=== PATIENT | male | born 1975 | race African-American/Black ===

== ENCOUNTER 2017-03-26 23:55 | Emergency (ER) | payer MEDICARE, MEDICAID ==
[~2017-03-26] VITALS: Ht 170.2 cm; Wt 71.0 kg
[~2017-03-26 23:55] MED LIST: AMLO10TA4 PO; APIX2.5T PO; CINA30 PO; CLON0.1T PO; COR12 PO; SEVE800T PO
[2017-03-27] MEDS ORDERED: ONDANSETRON HCL 4MG/2ML VIAL IV STA (03:19)
[2017-03-27] MEDS ORDERED: MORPHINE SULFATE 4 MG/ML CPJ (NOT FOR IM USE) IV STA (03:19)
[2017-03-27 03:37] LABS: BASOPHILS % 0.5 % (0.0-2.0); EOSINOPHILS % 5.3 % (0.0-5.0); HEMATOCRIT. 27.8 % (42.0-52.0); LYMPHOCYTES % 25.3 % (20.0-50.0); MEAN CORPUSCULAR VOLUME 95.5 fL (80.0-94.0); MEAN PLATELET VOLUME 8.7 fl (7.4-10.4); MONOCYTES % 10.7 % (2.0-8.0); NEUTROPHILS % 58.2 % (40.0-76.0); PLATELET 164 x1000/uL (130-400); RED BLOOD CELL COUNT 2.91 mill/uL (4.7-6.1); RED CELL DISTRIBUTION WIDTH 18.5 % (11.6-14.6)
[2017-03-27 03:50] LABS: INR 1.2; PROTHROMBIN TIME 12.1 sec
[2017-03-27 03:52] LABS: CARBON DIOXIDE 25 mEq/L (21-32); CHLORIDE 103 mEq/L (98-107); TROPONIN I 0.03 ng/mL (0.00-0.04)
[2017-03-27] MEDS ORDERED: DIPHENHYDRAMINE 50MG/ML VIAL IV ONE (05:00)
[2017-03-27 06:15] VITALS: BP 110/77
== END 2017-03-27 06:40 | disposition home or self-care (01) ==
LOC: ER 23:55
DX: R07.9 Chest pain, unspecified (principal); I50.9 Heart failure, unspecified; I11.0 Hypertensive heart disease with heart failure; F17.200 Nicotine dependence, unspecified, uncomplicated; Z86.718 Personal history of other venous thrombosis and embolism; Z99.2 Dependence on renal dialysis; Z79.01 Long term (current) use of anticoagulants; Z88.0 Allergy status to penicillin
CPT/HCPCS: 36415; 71010; 80053; 84484; 85025; 85610; 93005; 96374; 96375; 99285; J1200; J2270; J2405

== ENCOUNTER 2017-03-27 15:47 | Inpatient (IN) | payer MEDICARE, MEDICAID ==
[~2017-03-27] VITALS: Ht 226.1 cm; Wt 70.3 kg
[2017-03-27 17:29] LABS: BASOPHILS % 2.3 % (0.0-2.0); EOSINOPHILS % 7.4 % (0.0-5.0); HEMATOCRIT. 29.1 % (42.0-52.0); HEMOGLOBIN. 9.6 g/dL (14.0-18.0); LYMPHOCYTES % 28.7 % (20.0-50.0); MEAN CORPUSCULAR HEMOGLOBIN 31.3 pg (28.0-32.0); MEAN CORPUSCULAR VOLUME 94.9 fL (80.0-94.0); MEAN PLATELET VOLUME 9.9 fl (7.4-10.4); MONOCYTES % 12.1 % (2.0-8.0); NEUTROPHILS % 49.5 % (40.0-76.0); PLATELET 176 x1000/uL (130-400); RED BLOOD CELL COUNT 3.07 mill/uL (4.7-6.1); RED CELL DISTRIBUTION WIDTH 18.3 % (11.6-14.6)
[2017-03-27 17:33] LABS: INR 1.1; PROTHROMBIN TIME 11.4 sec
[2017-03-27 17:41] LABS: TROPONIN I 0.02 ng/mL (0.00-0.04)
[2017-03-27] MEDS: HYDROMORPHONE HCL/PF 2MG/ML CPJ IV PRN (20:20)
[2017-03-27 23:05] VITALS: BP 140/104
[2017-03-27] MEDS ORDERED: HYDROMORPHONE HCL/PF 2MG/ML CPJ IV PRN (23:30)
[2017-03-28] VITALS: BP 127/96
[2017-03-28] MEDS ORDERED: ONDANSETRON HCL 4MG/2ML VIAL IV PRN
[2017-03-28] MEDS ORDERED: CLONIDINE 0.1MG TABLET PO PRN
[2017-03-28] MEDS: DIPHENHYDRAMINE 50MG/ML VIAL IV PRN ×4 (00:20→20:28)
[2017-03-28] MEDS: CARVEDILOL 12.5MG TABLET PO SCH ×3 (00:35→20:25)
[2017-03-28] MEDS: HYDROMORPHONE HCL/PF 2MG/ML CPJ IV PRN ×5 (01:35→20:05)
[2017-03-28 04:00] VITALS: BP 122/91
[2017-03-28 06:59] LABS: HEMATOCRIT 33.3 % (42.0-52.0); HEMOGLOBIN 10.7 g/dL (14.0-18.0); MEAN CORPUSCULAR HEMOGLOBIN 31.4 pg (28.0-32.0); MEAN CORPUSCULAR VOLUME 97.7 fL (80.0-94.0); PLATELET 177 x1000/uL (130-400); RED BLOOD CELL COUNT 3.41 mill/uL (4.7-6.1); RED CELL DISTRIBUTION WIDTH 18.3 % (11.6-14.6)
[2017-03-28 07:49] LABS: CREATINE KINASE MB FRACTION 0.9 ng/mL (0.5-3.6); TROPONIN I 0.02 ng/mL (0.00-0.04)
[2017-03-28 08:39] VITALS: BP 139/99
[2017-03-28] MEDS ORDERED: CARVEDILOL 12.5MG TABLET PO SCH (09:00)
[2017-03-28] MEDS: APIXABAN 2.5 MG TABLET PO SCH ×2 (09:00→20:20)
[2017-03-28] MEDS: AMLODIPINE 10MG TABLET PO SCH ×2 (09:00→20:21)
[2017-03-28] MEDS ORDERED: CINACALCET HCL 30MG TABLET PO SCH ×2 (09:00→18:00)
[2017-03-28 12:15] VITALS: BP 139/104
[2017-03-28 15:46] LABS: CREATINE KINASE MB FRACTION 1.3 ng/mL (0.5-3.6); TROPONIN I 0.02 ng/mL (0.00-0.04)
[2017-03-28 16:53] VITALS: BP 130/99
[2017-03-28 20:00] VITALS: BP 136/110
[2017-03-29] VITALS: BP 120/90
[2017-03-29] MEDS: HYDROMORPHONE HCL/PF 2MG/ML CPJ IV PRN ×6 (00:01→21:31)
[2017-03-29 03:49] VITALS: BP 135/99
[2017-03-29 08:00] VITALS: BP 139/92
[2017-03-29] MEDS ORDERED: MEDICATION NOT ON FORMULARY EA (Sevelamer Hcl (Renagel) 800 MG) PO SCH (08:00)
[2017-03-29] MEDS: APIXABAN 2.5 MG TABLET PO SCH ×2 (08:05→17:37)
[2017-03-29] MEDS: CARVEDILOL 12.5MG TABLET PO SCH ×2 (08:05→17:37)
[2017-03-29] MEDS: AMLODIPINE 10MG TABLET PO SCH ×2 (08:05→17:36)
[2017-03-29] MEDS: SEVELAMER CARBONATE 800 MG TABLET PO SCH ×3 (08:20→17:40)
[2017-03-29] MEDS: DIPHENHYDRAMINE 50MG/ML VIAL IV PRN ×3 (11:29→22:44)
[2017-03-29 12:00] VITALS: BP 138/110
[2017-03-29 16:00] VITALS: BP 120/90
[2017-03-29] MEDS ORDERED: HEPARIN SODIUM 1,000 UNIT/1ML VIAL IV NR (16:15)
[2017-03-29 20:00] VITALS: BP 114/80
[2017-03-30] VITALS: BP 120/86
[2017-03-30] MEDS: HYDROMORPHONE HCL/PF 2MG/ML CPJ IV PRN ×5 (01:31→19:57)
[2017-03-30 04:00] VITALS: BP 109/86
[2017-03-30] MEDS: DIPHENHYDRAMINE 50MG/ML VIAL IV PRN ×3 (04:15→19:57)
[2017-03-30 06:21] LABS: HEMATOCRIT. 29.8 % (42.0-52.0); HEMOGLOBIN. 9.7 g/dL (14.0-18.0); MEAN CORPUSCULAR VOLUME 95.6 fL (80.0-94.0); MEAN PLATELET VOLUME 9.8 fl (7.4-10.4); PLATELET 140 x1000/uL (130-400); RED BLOOD CELL COUNT 3.12 mill/uL (4.7-6.1); RED CELL DISTRIBUTION WIDTH 17.6 % (11.6-14.6)
[2017-03-30] MEDS: SEVELAMER CARBONATE 800 MG TABLET PO SCH ×3 (07:50→17:16)
[2017-03-30 08:00] VITALS: BP 128/88
[2017-03-30] MEDS: APIXABAN 2.5 MG TABLET PO SCH ×2 (08:52→17:16)
[2017-03-30] MEDS: CARVEDILOL 12.5MG TABLET PO SCH ×2 (08:52→17:16)
[2017-03-30] MEDS: AMLODIPINE 10MG TABLET PO SCH ×2 (08:52→17:16)
[2017-03-30 08:53] LABS: ATYPICAL LYMPHOCYTES 3
[2017-03-30 08:55] LABS: PLATELET ESTIMATE NORMAL
[2017-03-30] MEDS ORDERED: CINACALCET HCL 60MG TABLET PO SCH (11:21)
[2017-03-30] MEDS ORDERED: CLOTRIMAZOLE 1% SOLUTION 10ML TOP ONE (11:30)
[2017-03-30 12:00] VITALS: BP 115/86
[2017-03-30 16:00] VITALS: BP 117/86
[2017-03-30 20:00] VITALS: BP 118/84
[2017-03-30] MEDS: CLOTRIMAZOLE 1% CREAM 30GM TOP SCH (20:00)
[2017-03-31] VITALS (7 sets, daily range): BP systolic 106–118; BP diastolic 69–94
[2017-03-31] MEDS: HYDROMORPHONE HCL/PF 2MG/ML CPJ IV PRN ×5 (00:07→18:00)
[2017-03-31] MEDS: DIPHENHYDRAMINE 50MG/ML VIAL IV PRN ×3 (02:41→16:18)
[2017-03-31] MEDS: CARVEDILOL 12.5MG TABLET PO SCH ×2 (08:07→16:18)
[2017-03-31] MEDS: AMLODIPINE 10MG TABLET PO SCH ×2 (08:08→16:18)
[2017-03-31] MEDS: CLOTRIMAZOLE 1% CREAM 30GM TOP SCH (08:12)
[2017-03-31] MEDS: APIXABAN 2.5 MG TABLET PO SCH ×2 (08:12→16:17)
[2017-03-31] MEDS: SEVELAMER CARBONATE 800 MG TABLET PO SCH ×3 (08:12→16:18)
== END 2017-03-31 18:55 | DRG 205 ==
LOC: ER 16:25 → ENRESERV 20:50 → 6WST 22:13
PROVIDERS: ADMIT Hospitalist; ATTEND Hospitalist
PROC: 5A1D00Z (ICD-10-PCS; principal; 2017-03-29)
DX: M94.0 Chondrocostal junction syndrome [Tietze] (principal); N18.6 End stage renal disease; E87.1 Hypo-osmolality and hyponatremia; I13.2 Hypertensive heart and chronic kidney disease with heart failure and with stage 5 chronic kidney disease, or end stage renal disease; I42.9 Cardiomyopathy, unspecified; I82.509 Chronic embolism and thrombosis of unspecified deep veins of unspecified lower extremity; I50.22 Chronic systolic (congestive) heart failure; D63.1 Anemia in chronic kidney disease; F17.200 Nicotine dependence, unspecified, uncomplicated; Z99.2 Dependence on renal dialysis; Z88.0 Allergy status to penicillin; Z91.013 Allergy to seafood; Z82.49 Family history of ischemic heart disease and other diseases of the circulatory system; Z79.01 Long term (current) use of anticoagulants
CPT/HCPCS: 36415; 71010; 80048; 80051; 80061; 82550; 82553; 83880; 84484; 85025; 85027; 85610; 93005; 93306; 93970; 97116; 97162; 99285; C1893; J1170; J1200; J1644